=== PATIENT | male | born 1960 | race Two or more races ===

== ENCOUNTER 2020-01-14 12:48 | Emergency (ER) | payer OTHER ==
[~2020-01-14] VITALS: Ht 170.2 cm; Wt 81.6 kg
[2020-01-14 13:16] VITALS: BP 155/90
[2020-01-14] MEDS ORDERED: ACETAMINOPHEN 325 MG TAB PO ONE ×2 (13:27→13:45)
== END 2020-01-14 14:20 | disposition home or self-care (01) ==
LOC: ER 12:48
DX: J40 Bronchitis, not specified as acute or chronic (principal); R50.9 Fever, unspecified
CPT/HCPCS: 71045; 87070; 87804; 87880